=== PATIENT | female | born 1965 | race African-American/Black ===

== ENCOUNTER 2021-11-07 13:13 | Emergency (ER) | payer BC, SELFPAY ==
--- NOTE | ~2021-11-07 | XR_ITS ---
EXAMINATION: XR chest 2V DATE: 11/07/2021 13:55 INDICATION: Chest pain. TECHNIQUE: Frontal and lateral views of the chest were obtained. COMPARISON: None. FINDINGS: A calcified right lung nodule is consistent with old granulomatous disease. No pleural effu brendon or pneumothorax. The heart size is normal. IMPRESSION: 1. No acute cardiopulmonary disease. Reviewed, dictated and finalized at location A. [employer]
[2021-11-07 13:24] VITALS: BP 152/80; PULSE 90; RESP 20; TEMP 36.7; O2SAT 100
--- NOTE | 2021-11-07 13:30 | ECG_ITS ---
Measurements Intervals [place] Rate: 85 P: 63 CA: 137 QRS: 30 QRSD: 79 T: 35 QT: 367 QTc: 438 Interpretive Statements SINUS RHYTHM NORMAL ECG Electronically Signed On 11-07-2021 15:25:01 [employer]INGERNAIL TECHNICIAN by Ferny Boyle D.O.
--- NOTE | 2021-11-07 13:31 | ED.CHESTPAIN ---
HPI - Chest Pain General Chief Complaint: Chest Pain Stated Complaint: Chest Pain Time Seen by Provider: 11/07/21 13:30 Source: patient, family, RN notes reviewed and old records reviewed Mode of arrival: ambulatory Limitations: no limitations History of Present Illness HPI narrative: 56-year-old female accompanied by significant other presents to [facility] with complaints of midsternal chest pain intermittent and sharp for the past 2 days. Patient denies any radiation of pain , no fevers or chills. no shortness of breath, denies any nausea or vomiting. Patient states that her pain was 7/10 yesterday and today is 4/10 and pain is worse when she takes a deep breath. Patient states that she had COVID in September and has had dry cough since having COVID. Patient admits to tobacco abuse of 2 pack per day for many years, reports that she has smoked cigarettes since she was 12 years old. Patient states that she did have a brother who had heart attack and blood clot. 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 MD complaint: chest pain Pertinent past history: other (hypertension, diabetes, tobacco abuse) Onset (ago): day(s) (2) Timing of current episode: episodic and other (varying intensity for past 2 days) Prior episodes: No Pain location: substernal Pain radiation: none Quality: sharp, dull and other (intermittent) Exacerbating factors: other (taking a deep breath) Risk Factors Coronary artery disease risk factors: diabetes, smoking history and hypertension Related Data On Oral Contraceptives: No Home Medications Medication Instructions Recorded Confirmed empagliflozin-linagliptin 1 tablet PO DAILY 11/07/21 11/07/21 [Glyxambi] losartan-hydrochlorothiazide 1 tablet PO DAILY 11/07/21 11/07/21 metformin 1,000 mg PO BID 11/07/21 11/07/21 Allergies Allergy/AdvReac Type Severity Reaction Status Date / Time No Known Allergies Allergy Verified 11/07/21 13:37 Review of Systems Review of Systems: CONSTITUTIONAL: Denies fever, chills, or sweats. EYES: Denies visual changes, redness, or discharge. ENT: Denies rhinorrhea, congestion, sore throat, or otalgia. CARDIOVASCULAR: Positive substernal chest pain,no palpitations, or edema. RESPIRATORY: dry cough denies dyspnea. GASTROINTESTINAL: Denies abdominal pain, nausea, vomiting, or diarrhea. GENITOURINARY: Denies dysuria or hematuria. SKIN: Denies rash or itching. MUSCULOSKELETAL: Denies back pain, joint pain, or myalgia. NEUROLOGIC: Denies headache, numbness, or weakness. PSYCHIATRIC: Denies anxiety or depression. All systems reviewed & are unremarkable except as noted in HPI and below PMFSH Past Medical History Medical History (Updated 11/07/21 @ 18:25 by Cayla Chao NP) Diabetes Hypertension Tobacco abuse Family History Family History (Updated 11/07/21 @ 18:17 by Cayla Chao NP) Mother Hypertension Father Family history of lung cancer Sibling Acute myocardial infarction Social History Social History (Updated 11/07/21 @ 18:17 by Cayla Chao NP) Smoking status: Heavy tobacco smoker Alcohol intake: never Substance use: never Living arrangements: with family Gender identity (if verbalized by the patient): Female Comments At time of signature, agree with nursing past medical, surgical, social and family history. There is no relevant family history pertinent to the presenting complaint Exam Narrative: GENERAL: Well-appearing, well-nourished, and in no acute distress. HEAD: Normocephalic, atraumatic. EYES: PERRLA and EOMI. ENT: Nares clear, no rhinorrhea or epistaxis. Mucous membranes moist.TM's normal with good light reflex, throat pink with no lesions or exudates or tonsil enlargement. NECK: Supple. no lymphadenopathy CHEST: Clear to auscultation. No respiratory distress.SaO2 100% on room air increase pain with deep breathing HEART: Regular rate and rhythm. No murmur heard. Normal peripheral pulses. ABD
[2021-11-07 13:38] VITALS: BP 152/80; PULSE 90; RESP 20; TEMP 36.7; O2SAT 100
== END 2021-11-07 14:29 | disposition short-term general hospital (02) ==
PROVIDERS: Emergency Provider Registered Nurse
DX: R07.9 Chest pain, unspecified (principal); F17.200 Nicotine dependence, unspecified, uncomplicated; E11.9 Type 2 diabetes mellitus without complications; I10 Essential (primary) hypertension; Z86.16 Personal history of COVID-19
CPT/HCPCS: 71046; 93005; 99213; G0463